=== PATIENT | male | born 1955 | race Caucasian/White ===

== ENCOUNTER 2024-11-08 17:57 | Emergency (ER) | payer MEDICARE, SELFPAY ==
[2024-11-08 17:58] VITALS: BP 135/81
[2024-11-08 18:23] LABS: % Basophils 0.4 % (0-2); % Eosinophils 2.2 % (0-6); % Immature Granulocytes 0.1 % (0-0.5); % Lymphocytes 19.2 % (20.5-51.1); % Neutrophils 71.1 % (42.2-75.2); Absolute Eosinophils 0.2 10^3/uL (0-0.7); Absolute Lymphocytes 1.6 10^3/uL (1.2-3.4); Absolute Monocytes 0.6 10^3/uL (0.1-0.6); Hematocrit 40.6 % (39.0-52.0); Mean Corp Hgb Conc. 34.5 g/dL (33.0-37.0); Mean Corpuscular Volume 89.8 fL (80.0-94.0); Mean Platelet Volume 8.6 fL (7.4-10.4); Nucleated Red Blood Cells % 0 % (-); Platelet Count 284 10^3/uL (130-400); Red Blood Cell Count 4.52 10^6/uL (4.70-6.10); Red Cell Dist. Width 12.8 % (11.5-14.5); White Blood Cell Count 8.4 10^3/uL (4.8-10.8)
[2024-11-08 18:37] LABS: ALT (SGPT) 15 U/L (0-50); AST (SGOT) 22 U/L (17-59); Albumin 4.7 g/dl (3.5-5.0); Alkaline Phosphatase 71 U/L (38-126); Blood Urea Nitrogen 39 mg/dl (9-20); Calcium 9.6 mg/dl (8.4-10.2); Carbon Dioxide 22 mmol/L (22-30); Chloride 112 mmol/L (98-107); Glucose 99 mg/dl (70-99); Potassium 4.2 mmol/L (3.5-5.1); Sodium 144 mmol/L (135-145); Total Bilirubin 1.1 mg/dl (0.2-1.3); Total Protein 7.3 g/dl (6.3-8.2)
--- NOTE | 2024-11-08 19:18 | ED.GENMED ---
History of Present Illness
General
Chief Complaint: Abdominal Symptoms
Source: patient
Exam Limitations: none
Time Seen by Provider: 11/08/24 19:13
Nursing documentation reviewed up to this point in time: agreed with
History of Present Illness
History of Present Illness:
69-year-old male presents emergency room due to diarrhea and agitation. He has a history of dementia, has been somewhat more agitated with his diarrhea. No fevers.
Past History
Past History
ED Past Medical History: Other (Dementia)
ED Past Surgical History: Other (Hernia repair)
Social History
Tobacco: Non-smoker
Alcohol: None
Drug: None
Personal:
Living: with family
Employment: Retired
Review of Systems
Review of Systems
Allergies reviewed?: Yes
All Other Systems: Not applicable
Constitutional: Reports no symptoms; Denies fever
EENT: Reports no symptoms
Respiratory: Reports no symptoms
Cardiac: Reports no symptoms
ABD/GI: Reports diarrhea
: Reports no symptoms
Musculoskeletal: Reports no symptoms
Skin: Reports no symptoms
Neurological: Reports no symptoms
Endocrine: Reports no symptoms
Hematologic/Lymphatic: Reports no symptoms
Psychiatric: Reports no symptoms
Phy Exam
Physical Exam
Physical Exam:
Physical Exam
General: no apparent distress, not acutely ill
Neck: supple. no meningeal signs. normal posterior pharynx
Heart: s1/s2 regular rate and rhythm, no murmur. equal radial
pulses.
HEENT: Pupils equal round reactive to light, EOMI
Lungs: no acute respiratory distress. clear bilaterally
Abdomen: normal bowel sounds. not tender. no CVAT
Neuro: alert and oriented to person. no focal neurological deficits cranial nerves II through XII intact
Skin: no rash
Psychiatric: well kept. interactive and cooperative
Extremities: no edema. no calf tenderness. negative homans. good distal pulses
Course
Orders/Labs/Results
Orders:
Orders
11/08/24 18:06
Complete Blood Count/With Diff Urgent
Comprehensive Metabolic Panel Urgent
11/08/24 19:33
Loperamide [Imodium] 4 mg PO NOW STA
Abnormal Lab Results
11/08/24
18:06
RBC 4.52 L 10^6/uL
(4.70-6.10)
Lymphocytes % 19.2 L %
(20.5-51.1)
Chloride 112 H mmol/L
(98-107)
BUN 39 H mg/dl
(9-20)
11/08/24 18:06
11/08/24 18:06
Vital Signs
Initial and Last Documented VS:
Initial Vital Signs
Temp Pulse Resp BP Pulse Ox
97.9 F 69 18 135/81 97
11/08/24 17:58 11/08/24 17:58 11/08/24 17:58 11/08/24 17:58 11/08/24 17:58
Last Documented Vital Signs
Temp Pulse Resp BP Pulse Ox
97.9 F 69 18 135/81 97
11/08/24 17:58 11/08/24 17:58 11/08/24 17:58 11/08/24 17:58 11/08/24 17:58
MDM/Problems Addressed
Differential Diagnosis Includes:
Hypovolemia, electrolyte abnormality, colitis
MDM/Problems Addressed:
69-year-old male with diarrhea, abdomen exam benign. Nonbloody brown stool on rectal exam.
Chronic conditions affecting care: Other (Dementia)
*Pulse Oximetry
Patient hypoxic: no
*Critical Care Note
Total Time (30-74mins, 75-104mins- exclusive of procedures): Not Applicable
Data Reviewed
Further Testing Considered But Not Given:
CT abdomen pelvis not indicated
Patient Management
Social determinants of health affecting care: Living situation and Strong social support
Escalation/DeEscalation of care consider admission/obs:
Admit not indicated
ED Attending Note
-
Portions of this chart may have been created with voice recognition software.� Occasional wrong word or��sound alike� substitutions may have occurred due to the inherent limitations of voice recognition software.
Discharge Plan
Departure
Patient Disposition: Home (Routine Discharge)
Date of Disposition: 11/08/24
Time of Disposition: 19:40
Patient with high blood pressure during this ER visit?: Yes
Condition: Good
Discharge Problem:
Diarrhea
Instructions: Diarrhea in teens and adults, BLOOD PRESSURE
Activity Restrictions/Additional Instructions:
Follow-up with primary care. Return for any concerns.
Interventions
Interventions:
*General Assessment Last Done: 11/08/24 18:01
*ED- Fall Risk Assessment Last Done: 11/08/24 18:01
Discharge Date and Time
Print Language: ROMANSH
[2024-11-08] MEDS: IMODIUM 4 MG PO (19:47)
== END 2024-11-08 19:50 | disposition home or self-care (01) ==
LOC: EMR 17:57
PROVIDERS: Emergency Medicine; EMERGENCY PHYSICIAN Emergency Medicine; FAMILY PHYSICIAN Internal Medicine
DX: R19.7 Diarrhea, unspecified (principal); F03.911 Unspecified dementia, unspecified severity, with agitation
CPT/HCPCS: 99283; 80053; 85025

== ENCOUNTER 2024-11-09 10:56 | Observation (INO) | payer MEDICARE, SELFPAY ==
[2024-11-09 06:37] VITALS: BP 155/81
--- NOTE | 2024-11-09 07:07 | ED.GENMED ---
History of Present Illness
<Yoni Pham PA-C - Last Filed: 11/09/24 10:40>
General
Chief Complaint: Change in Mental Status
Time Seen by Provider: 11/09/24 06:55
History of Present Illness
History of Present Illness:
Patient is a 69-year-old male with past medical history of frontotemporal dementia currently follows with neurology at [facility], diagnosed originally in 2011, here today for evaluation via EMS for a change in mental status and
diarrhea that has been occurring over the past 1 day. states the patient has had worsening of his dementia over the 1 month but yesterday the patient developed diarrhea and has since had an acute change in his mental status. He has had
greater than 10 episodes of slightly watery/semiformed diarrhea. No black or blood noted. No fevers. No other acute complaints. The patient has been more combative and has been physical with his . The patient was briefly evaluated in the
emergency department yesterday but ultimately left prior to being formally evaluated as the wait was too long. contacted EMS this morning as the patient has been having worsening symptoms and increased combativeness. I was able to speak with
the via the telephone. Her name is Jennie. She was able to provide the above history. She also denies recent antibiotic use for the patient. No recent travel outside of the country. No recent changes in diet or eating anything out of the
ordinary. No sick contacts. does state that they have been looking at nursing homes more recently over the past 1 month as the patient has been having worsening of his baseline dementia and she does not feel that she is able to appropriately
care for him.
Past History
<Yoni Pham PA-C - Last Filed: 11/09/24 10:40>
Past History
ED Past Medical History: Other (Dementia)
ED Past Surgical History: Other (Hernia repair)
Social History
Tobacco: Non-smoker
Alcohol: None
Drug: None
Personal:
Living: with family
Employment: Retired
Review of Systems
<Yoni Pham PA-C - Last Filed: 11/09/24 10:40>
Review of Systems
All Other Systems: ROS reviewed and negative except as documented in HPI and ROS
Phy Exam
<Yoni Pham PA-C - Last Filed: 11/09/24 10:40>
Physical Exam
Physical Exam:
GENERAL: Alert , in no apparent distress
EYE: pupils equal and reactive
NECK: Supple, no significant adenopathy.
ENT: o/p clr, mmm.
CARDIAC: Regular rate and rhythm .
LUNGS: Clear breath sounds bilaterally, no acute respiratory distress, no wheezes/rales/rhonchi
ABDOMEN: Soft, without focal tenderness, no r/g, no cvat
NEUROLOGICAL: Alert and oriented to self, place, and year, but not month, no focal neuro deficits
SKIN: Warm and dry, skin intact.
MUSCULOSKELETAL: No edema, well perfused.
PSYCH: Normal and appropriate interaction.
Course
<Yoni Pham PA-C - Last Filed: 11/09/24 10:40>
Orders/Labs/Results
Orders:
Orders
11/09/24 06:40
Straight cath- Treatment ONCE
11/09/24 06:50
Urinalysis Reflex To Culture Urgent
11/09/24 07:14
Ova & Parasites Giardia/Crypto AG [Giardia/Cryptosporidium Ag] Urgent
DENICE Source: Feces/Stool
Specimen Description:
STOOL [C difficile Antigen & Toxins] Urgent
DENICE Source: Feces/Stool
Specimen Description:
Stool Culture Urgent
DENICE Source: Feces/Stool
Specimen Description:
11/09/24 07:19
Haloperidol Lactate [Haldol] 3 mg IM NOW STA
11/09/24 07:34
Complete Blood Count/With Diff Urgent
Comprehensive Metabolic Panel Urgent
Magnesium Urgent
Phosphorus Urgent
11/09/24 08:10
0.9% Sodium Chloride 1000 ml [Nss] 1,000 ml IV BOLUS
11/09/24 10:30
Admit/Transfer Patient As Directed
Co-Sign Provider:
Level of Care: Observation services
Assign to:: Medical/Surgical
Physician / Group: Dr. Petar Baca/Hospitalists
Diagnosis: Diarrhea, worsening of dementia/agitation
11/09/24 10:31
Code Status As Directed
Resuscitation Status: Full Code
11/09/24 10:34
Electrocardiogram (*1) Routine
Reason for Study: QTc Monitoring
Abnormal Lab Results
11/09/24
07:34
RBC 4.53 L 10^6/uL
(4.70-6.10)
Lymphocytes % 20.3 L %
(20.5-51.1)
Chloride 113 H mmol/L
(98-107)
BUN 38 H mg/dl
(9-20)
Glucose 100 H mg/dl
(70-99)
11/09/24 07:34
11/09/24 07:34
Vital Signs
Initial and Last Documented VS:
Initial Vital Signs
Temp Pulse BP Pulse Ox
97.7 F 65 155/81 97
11/09/24 06:37 11/09/24 06:37 11/09/24 06:37 11/09/24 06:37
Last Documented Vital Signs
Temp Pulse BP Pulse Ox
97.7 F 65 155/81 97
11/09/24 06:37 11/09/24 06:37 11/09/24 06:37 11/09/24 06:37
<Ghassan Gaona, DO - Last Filed: 11/09/24 07:40>
Orders/Labs/Results
Orders:
Orders
11/09/24 06:40
Straight cath- Treatment ONCE
11/09/24 06:50
Urinalysis Reflex To Culture Urgent
11/09/24 07:14
Ova & Parasites Giardia/Crypto AG [Giardia/Cryptosporidium Ag] Urgent
DENICE Source: Feces/Stool
Specimen Description:
STOOL [C difficile Antigen & Toxins] Urgent
DENICE Source: Feces/Stool
Specimen Description:
Stool Culture Urgent
DENICE Source: Feces/Stool
Specimen Description:
11/09/24 07:19
Haloperidol Lactate [Haldol] 3 mg IM NOW STA
11/09/24 07:34
Complete Blood Count/With Diff Urgent
Comprehensive Metabolic Panel Urgent
Magnesium Urgent
Phosphorus Urgent
11/09/24 08:10
0.9% Sodium Chloride 1000 ml [Nss] 1,000 ml IV BOLUS
11/09/24 10:30
Admit/Transfer Patient As Directed
Co-Sign Provider:
Level of Care: Observation services
Assign to:: Medical/Surgical
Physician / Group: Dr. Petar Baca/Hospitalists
Diagnosis: Diarrhea, worsening of dementia/agitation
11/09/24 10:31
Code Status As Directed
Resuscitation Status: Full Code
11/09/24 10:34
Electrocardiogram (*1) Routine
Reason for Study: QTc Monitoring
Abnormal Lab Results
11/09/24
07:34
RBC 4.53 L 10^6/uL
(4.70-6.10)
Lymphocytes % 20.3 L %
(20.5-51.1)
Chloride 113 H mmol/L
(98-107)
BUN 38 H mg/dl
(9-20)
Glucose 100 H mg/dl
(70-99)
11/09/24 07:34
11/09/24 07:34
Vital Signs
Initial and Last Documented VS:
Initial Vital Signs
Temp Pulse BP Pulse Ox
97.7 F 65 155/81 97
11/09/24 06:37 11/09/24 06:37 11/09/24 06:37 11/09/24 06:37
Last Documented Vital Signs
Temp Pulse BP Pulse Ox
97.7 F 65 155/81 97
11/09/24 06:37 11/09/24 06:37 11/09/24 06:37 11/09/24 06:37
<Yoni Pham PA-C - Last Filed: 11/09/24 10:40>
MDM/Problems Addressed
Differential Diagnosis Includes:
Patient is a 69-year-old male with past medical history of frontotemporal dementia currently follows with neurology at [facility], diagnosed originally in 2011, here today for evaluation via EMS for a change in mental status and
diarrhea. Overall, patient appears very well. Vital signs remarkable for a mildly elevated blood pressure. Physical examination described above. On my evaluation the patient denies acute complaints. He does appear intermittently
agitated/combative and is requesting to go home. He is easily redirectable. We will begin with a workup to assess for dehydration and to assess diarrhea. He will ultimately require admission to the hospital as the patient is not able to be cared
for at home. We will involve social work and care management.
11/09/2024 0828: Screening labs reveal a mildly elevated chloride to 113 and elevated BUN to 38 with a normal creatinine of 1.1. Stool studies pending. We will admit the patient to medicine for further evaluation as well as for management and
placement.
<Yoni Pham PA-C - Last Filed: 11/09/24 10:40>
*Critical Care Note
Total Time (30-74mins, 75-104mins- exclusive of procedures): Not Applicable
ED Attending Note
<Yoni Pham PA-C - Last Filed: 11/09/24 10:40>
-
Portions of this chart may have been created with voice recognition software.� Occasional wrong word or��sound alike� substitutions may have occurred due to the inherent limitations of voice recognition software.
<Ghassan Gaona, DO - Last Filed: 11/09/24 07:40>
ED Attending Note
Patient seen and examined by attending physician: Yes
I performed the substantive portion of visit, reviewed & personally made and approve the management plan that is documented in note by myself or ELINA.: Yes
ED Attending Note:
Seen with PA examined independently elderly male with dementia increasing agitation diarrheal illness seen here yesterday left after becoming more agitated medics called and requested sedation did although we did not give it to him, states he did
smell like urine question if he has a UTI sounds like cannot handle him at home, will check for medical causes given some sedation here antipsychotics, disposition could be a challenge
Discharge Plan
Departure
Patient Disposition: Admit
Date of Disposition: 11/09/24
Time of Disposition: 08:53
Admit to: Med/Surg
Admit to doctor: Andrew Shea
Presentation/result/management discussed w/ accepting MD/DO: Hospitalist
Patient with high blood pressure during this ER visit?: Yes
Consults for patient: Case Management
Condition: Fair
Covid-19: Not Applicable
Discharge Problem:
Dementia, Altered mental status, Diarrhea
Referrals:
UNKNOWN - PT NOT,INTERVIEWE [Family Provider]
Interventions
Interventions:
*Risk Screen - Suicide Last Done: 11/09/24 06:37
*General Assessment Last Done: 11/09/24 06:37
*Neglect/Abuse Screening Last Done: 11/09/24 06:37
*ED- Fall Risk Assessment Last Done: 11/09/24 06:37
*ED COVID-19 Vaccine History Last Done: 11/09/24 06:37
ED- Neurological Assessment Last Done: 11/09/24 09:47
Discharge Date and Time
Print Language: MAURITIAN
[2024-11-09] MEDS: HALDOL 3 MG IM ×2 (07:29→19:33)
[2024-11-09 07:44] LABS: % Basophils 0.6 % (0-2); % Eosinophils 5.2 % (0-6); % Immature Granulocytes 0.1 % (0-0.5); % Lymphocytes 20.3 % (20.5-51.1); % Neutrophils 64.8 % (42.2-75.2); Absolute Eosinophils 0.4 10^3/uL (0-0.7); Absolute Lymphocytes 1.5 10^3/uL (1.2-3.4); Absolute Monocytes 0.6 10^3/uL (0.1-0.6); Absolute Neutrophils 4.6 10^3/uL (1.4-6.5); Hematocrit 41.3 % (39.0-52.0); Hemoglobin 13.8 g/dL (13.0-18.0); Mean Corp Hgb Conc. 33.4 g/dL (33.0-37.0); Mean Corpuscular Hgb 30.5 pg (27.0-31.0); Mean Corpuscular Volume 91.2 fL (80.0-94.0); Mean Platelet Volume 8.6 fL (7.4-10.4); Nucleated Red Blood Cells % 0 % (-); Platelet Count 267 10^3/uL (130-400); Red Blood Cell Count 4.53 10^6/uL (4.70-6.10); White Blood Cell Count 7.1 10^3/uL (4.8-10.8)
[2024-11-09 08:08] LABS: ALT (SGPT) 15 U/L (0-50); AST (SGOT) 25 U/L (17-59); Albumin 4.2 g/dl (3.5-5.0); Alkaline Phosphatase 64 U/L (38-126); Blood Urea Nitrogen 38 mg/dl (9-20); Calcium 9.2 mg/dl (8.4-10.2); Carbon Dioxide 25 mmol/L (22-30); Chloride 113 mmol/L (98-107); Estimated Creatinine Clearance 60 ml/min; Glucose 100 mg/dl (70-99); Magnesium 2.2 mg/dl (1.6-2.3); Phosphorus 3.3 mg/dl (2.5-4.5); Sodium 145 mmol/L (135-145); eGFR > 60.00
--- NOTE | 2024-11-09 09:50 | CM ---
Addendum entered by Sushma Fernandez RN 11/09/24 15:03:
The patient is admitted under observational status. The DUGGAN letter was discussed with the spouse via telephone. There were no questions with regards to the letter.
Original Note:
Reviewed the chart notes and spoke with the patient's spouse via telephone. Patient is confused and unable to provide meaningful information. The patient resides with his spouse in a two story home with two steps to enter. The patient refused to
use any DME. The patient has had VN/PT/OT through [facility], but no SNF. The patient's current pharmacy is [facility].
Per spouse, patient was to be evaluated on Monday for possible placement at the [facility]. Per spouse, plan was for placement in January at the [facility] once it is completed. Per spouse, she is unable to handle the patient
at home any longer. Spouse will reach out to the [facility] to see if they would be able to evaluate the patient while in hospital. CM continues to be available to patient/family and is monitoring medical plan for needs at discharge.
Plan: Discharge to [facility] once bed secured.
--- NOTE | 2024-11-09 10:36 | HPS.HSE ---
Family Physician
-
Family Physician: INTERVIEWE UNKNOWN - PT NOT
Chief Complaint
-
Diarrhea, agitation
History of Present Illness
69 y/o male with past medical history of frontotemporal dementia currently follows with neurology at [facility], diagnosed originally in 2011, here today for evaluation via EMS for a change in mental status and diarrhea that has been
occurring over the past 1-2 days. History was obtained, via phone, from patient's (Jennie), since patient was confused and could not provide a reliable history. Jennie mentioned that on November 08, 2024 around 4 am patient had slightly watery
brownish semiformed diarrhea. Patient has actually had at least 10 episodes of this. Patient has not expressed any other symptoms as per Jennie. Over the past month, his agitation has been worsening, but after patient's diarrhea started, it was even
worse. Patient's said that patient is otherwise very healthy and does not take any medications at home.
Medical History
Past Medical History
Past Medical History: Reports Other (As per HPI above)
Past Surgical History: Reports Other (Hernia Surgery)
Social History
Tobacco: Non-smoker
Alcohol: None
Drug: None
Family History
Family History: Not pertinent
Allergies / Home Medications
Allergies reflects when Allergies were last updated in [facility].
Home Medications with original date entered in [facility]
Allergy/Medication List:
Allergies
Allergy/AdvReac Type Severity Reaction Status Date / Time
No Known Allergies Allergy Verified 04/06/21 10:46
Review of Systems
-
Unable to obtain full review of systems at this time due to: Dementia
Physical Exam
Vital Signs
Vital Signs
Temp Pulse BP Pulse Ox
97.7 F 65 155/81 97
11/09/24 06:37 11/09/24 06:37 11/09/24 06:37 11/09/24 06:37
Physical Exam
General: No Apparent Distress
HEENT: NormoCephalic and Moist mucous membranes
Respiratory: Clear
Cardiac: S1/S2 and Regular Rhythm
GI: Soft, Non Tender and Normal Bowel Sounds
Genito-urinary: Other (No suprapubic tenderness. No CVA tenderness on either side.)
Musculoskeletal: No Cyanosis
Skin: Warm and Dry
Neuro: Awake and Alert
Psych: Confused, Agitated and Apparent Dementia
Laboratory Results
-
11/09/24 07:34
11/09/24 07:34
Laboratory Results
Total Bilirubin 1.0 mg/dl (0.2-1.3) 11/09/24 07:34
AST 25 U/L (17-59) 11/09/24 07:34
ALT 15 U/L (0-50) 11/09/24 07:34
Alkaline Phosphatase 64 U/L (38-126) 11/09/24 07:34
Impression/Plan
-
Assessment/Plan
Diarrhea -- at least 10 episodes starting in nurse head of November 08, 2024
-No obvious etiology for the loose stools/diarrhea, could be viral gastroenteritis. No blood or abdominal distress noted in history of exam. No fever.
-No abdominal tenderness during physical exam
-IV fluids
-Follow stool studies
-If persists, will consult GI
Frontotemporal Dementia
Worsening agitation -- was getting worse over the past ~1 month, now even more worse since diarrhea started
-Consider 20 mg daily Citalopram if QTc is okay
-Can also consider for agitation: Seroquel 25 mg prn and scheduled HS, Olanzapine, or Ativan
History of Hernia Surgery
DVT Prophylaxis: Lovenox
Code Status: Full Code (at the time of admission, patient's Jennie confirmed that patient is a Full Code)
[2024-11-09 12:20] VITALS: BP 113/67
[2024-11-09 12:24] VITALS: BMI 21.5
--- NOTE | 2024-11-09 12:30 | PTCARENOTE ---
Patient arrived to unit. VSS. patient oriented to self and knows the year. disoriented to place and month. patient tolerated ambulating from stretcher to bed with staff assistance. patient has unsteady gait. bed alarm in place. 1:1 initiated. call
marshall in reach. safety maintained.
[2024-11-09] MEDS: LR 1000 IV (12:55)
[2024-11-09 15:00] VITALS: BP 141/35
[2024-11-09] MEDS: LOVENOX 40 MG SC (17:23)
[2024-11-09 21:52] LABS: Urine Albumin Negative (Neg - Trace); Urine Bilirubin Negative (Negative); Urine Character Clear (Clear); Urine Color Yellow; Urine Glucose Negative (Negative); Urine Ketone 1+ (Negative); Urine Leukocyte Negative (Negative); Urine Nitrite Negative (Negative); Urine Occult Blood Negative (Negative); Urine Urobilinogen Negative (Neg - 1+)
[2024-11-09 23:36] VITALS: BP 139/86
[2024-11-10] MEDS: LR 1000 IV (04:25)
[2024-11-10 07:00] VITALS: BP 139/70
[2024-11-10 07:07] LABS: Hematocrit 40.6 % (39.0-52.0); Hemoglobin 13.8 g/dL (13.0-18.0); Mean Corpuscular Hgb 30.9 pg (27.0-31.0); Mean Corpuscular Volume 90.8 fL (80.0-94.0); Mean Platelet Volume 8.8 fL (7.4-10.4); Platelet Count 265 10^3/uL (130-400); Red Blood Cell Count 4.47 10^6/uL (4.70-6.10); Red Cell Dist. Width 12.6 % (11.5-14.5); White Blood Cell Count 6.3 10^3/uL (4.8-10.8)
[2024-11-10 07:23] LABS: Blood Urea Nitrogen 22 mg/dl (9-20); Calcium 9.1 mg/dl (8.4-10.2); Carbon Dioxide 24 mmol/L (22-30); Chloride 108 mmol/L (98-107); Estimated Creatinine Clearance 66 ml/min; Glucose 98 mg/dl (70-99); Magnesium 2.2 mg/dl (1.6-2.3); Potassium 4.1 mmol/L (3.5-5.1); Sodium 139 mmol/L (135-145); eGFR > 60.00
--- NOTE | 2024-11-10 07:45 | VATNOTE ---
Called by PCN to restart pt's IV as pt pulled it out this AM. Reviewed chart with PCN--ordered 75 mL/hour LR IV, however, pt is eating and drinking, not on telemetry, and with no other IV medications. PCN to discuss need for fluids and PIV with
provider. Will continue to follow, may not need PIV restart; will restart if deemed necessary by MD.
--- NOTE | 2024-11-10 08:01 | W.PN.HOSP.TC ---
Today's Communication/Plan
-
Placement Pending
Assessment / Plan
Assessment / Plan
Physical Exam
General: No Apparent Distress
HEENT: NormoCephalic and Moist mucous membranes
Respiratory: Clear
Cardiac: S1/S2 and Regular Rhythm
GI: Soft, Non Tender and Normal Bowel Sounds
Genito-urinary: Other (No suprapubic tenderness. No CVA tenderness on either side.)
Musculoskeletal: No Cyanosis
Skin: Warm and Dry
Neuro: Awake and Alert
Psych: Confused, Agitated and Apparent Dementia
Assessment/Plan
Diarrhea -- at least 10 episodes starting in food demonstrator of November 08, 2024
-No obvious etiology for the loose stools/diarrhea, could be viral gastroenteritis. No blood or abdominal distress noted in history of exam. No fever.
-No abdominal tenderness during physical exam
-DIARRHEA RESOLVED OF NOVEMBER 10, 2024
-IV fluids were given
Frontotemporal Dementia
Worsening agitation -- was getting worse over the past ~1 month, now even more worse since diarrhea started just prior to this hospitalization
-Consider 20 mg daily Citalopram if QTc is okay
-Can also consider for agitation: Seroquel 25 mg prn and scheduled HS, Olanzapine, or Ativan
-So far this hospitalization, prn Zyprexa and Haldol have been given for agitation
-Monitor EKG QTc -- repeat EKG ordered for the morning
History of Hernia Surgery
DVT Prophylaxis: Lovenox
Code Status: Full Code (at the time of admission, patient's Jennie confirmed that patient is a Full Code)
Anticipated Discharge: 24 - 48 hours
Subjective/Interval History
-
Date of Service: November 10, 2024
Patient was seen and examined. Per patient's nurse, overnight he was agitated, but he has not had any diarrhea.
Objective Data
-
Labs:
Laboratory Results
11/10/24
06:36
WBC 6.3
Hgb 13.8
Hct 40.6
Plt Count 265
Sodium 139
Potassium 4.1
Chloride 108 H
Carbon Dioxide 24
BUN 22 H
Creatinine 1.0
Glucose 98
Calcium 9.1
Vital Signs:
Vital Signs
Temp Pulse Resp BP Pulse Ox
98.1 F 79 18 139/86 96
11/09/24 23:36 11/09/24 23:36 11/09/24 23:36 11/09/24 23:36 11/09/24 23:36
I&O
11/09/24 11/10/24 11/11/24
06:59 06:59 06:59
Intake Total 720 / 720
Balance 720 / 720
[2024-11-10] MEDS: STERILE WATER FOR INJECTION 2.1 ML IM (11:31)
[2024-11-10] MEDS: ZYPREXA 5 MG IM (11:32)
[2024-11-10] MEDS: LR IV (13:55)
[2024-11-10 15:00] VITALS: BP 149/77
[2024-11-10] MEDS: LOVENOX 40 MG SC (17:33)
[2024-11-10 23:42] VITALS: BP 149/75
[2024-11-11 07:42] VITALS: BP 154/81
[2024-11-11 08:23] LABS: Hematocrit 41.7 % (39.0-52.0); Hemoglobin 14.1 g/dL (13.0-18.0); Mean Corp Hgb Conc. 33.8 g/dL (33.0-37.0); Mean Corpuscular Hgb 30.2 pg (27.0-31.0); Mean Corpuscular Volume 89.3 fL (80.0-94.0); Platelet Count 278 10^3/uL (130-400); Red Blood Cell Count 4.67 10^6/uL (4.70-6.10); Red Cell Dist. Width 12.8 % (11.5-14.5); White Blood Cell Count 7.9 10^3/uL (4.8-10.8)
[2024-11-11 08:55] LABS: Blood Urea Nitrogen 20 mg/dl (9-20); Calcium 9.2 mg/dl (8.4-10.2); Carbon Dioxide 26 mmol/L (22-30); Chloride 107 mmol/L (98-107); Estimated Creatinine Clearance 66 ml/min; Glucose 99 mg/dl (70-99); Potassium 3.8 mmol/L (3.5-5.1); Sodium 140 mmol/L (135-145); eGFR > 60.00
--- NOTE | 2024-11-11 11:08 | CM ---
police manager reviewed patient's chart and reached out to patient's physician for PT/OT orders, per patient's spouse she is looking at two facilities, [facility], and [facility] unit in [place]. Referrals sent to both facilities, and
per Kallie at the [facility] [place] they will be out to see patient today at 1pm.
Plan; Personal Care/ Assisted Living placement for patient's with memory care/dementia.
--- NOTE | 2024-11-11 11:10 | W.PN.HOSP.TC ---
Today's Communication/Plan
-
PT/OT
Discharge planning
Assessment / Plan
Assessment / Plan
Gen-awake, alert, confused, NAD
HEENT-NC, AT, anicteric, clear oral mm
Neck-supple
CV-reg, no M, +S1/S2
Lungs-clear B/L
Abd-soft, NT, ND
Ext-no edema
Musculoskeletal-no cyanosis, clubbing
Skin-warm and dry
Neuro-grossly non-focal
Psych-calm, cooperative
Acute diarrhea --resolved.
-No obvious etiology for the loose stools/diarrhea, could be viral gastroenteritis. No blood or abdominal distress noted in history of exam. No fever.
Frontotemporal Dementia
Worsening agitation -- was getting worse over the past ~1 month, now even more worse since diarrhea started just prior to this hospitalization
-Consider 20 mg daily Citalopram if QTc is okay
-Can also consider for agitation: Seroquel 25 mg prn and scheduled HS, Olanzapine, or Ativan
-So far this hospitalization, prn Zyprexa and Haldol have been given for agitation
- QTc 416 ms today.
History of Hernia Surgery
Full code
Dispo -medically stable for discharge to assisted living. PT/OT consulted. Case management aware.
Anticipated Discharge: Today
Subjective/Interval History
-
Date of Service: November 11, 2024
Patient seen and examined. No complaints. Confused.
Objective Data
-
Labs:
Laboratory Results
11/11/24
07:55
WBC 7.9
Hgb 14.1
Hct 41.7
Plt Count 278
Sodium 140
Potassium 3.8
Chloride 107
Carbon Dioxide 26
BUN 20
Creatinine 1.0
Glucose 99
Calcium 9.2
Vital Signs:
Vital Signs
Temp Pulse Resp BP Pulse Ox
98.2 F 65 18 154/81 97
11/11/24 07:42 11/11/24 07:42 11/11/24 07:42 11/11/24 07:42 11/11/24 07:42
I&O
11/10/24 11/11/24 11/12/24
06:59 06:59 06:59
Intake Total 720 / 720 240 / 240
Balance 720 / 720 240 / 240
Review of Systems
-
Unable to obtain full review of systems at this time due to: Dementia
History Source: Patient
All other systems: Reviewed and negative
[2024-11-11 15:07] VITALS: BP 154/86; PULSE 65
[2024-11-11 16:03] VITALS: BP 149/81
[2024-11-11] MEDS: LOVENOX 40 MG SC (18:17)
[2024-11-11 23:40] VITALS: BP 146/82
[2024-11-12 08:10] VITALS: BP 157/81
--- NOTE | 2024-11-12 10:17 | CM ---
Addendum entered by Lorelei Aleman 11/12/24 15:51:
Patient accepted at [facility] for transfer in the am. Patient family in agreement and DME sent to Felicita from admissions at [facility]. CM will continue to follow for discharge planning needs.
Plan; transfer via ambulance to personal care memory care
Addendum entered by Lorelei Aleman 11/12/24 12:31:
Patient stated that children are going to see [facility] and she is leaning toward them at this time. asked CM to wait for children assessment prior to contacting [facility].
Addendum entered by Lorelei Aleman 11/12/24 12:06:
CM spoke with , she states they are having difficulty deciding between the two facilities; [facility] and [facility] in [place]. Patient requested to talk to Wendi Pearson about the decision between the 2 options. Await call back from
regarding decision.
Original Note:
Patient accepted by [facility] and per liaison willing to accept today. CM called to patient and left VM to clarify patient choice. CM will continue to follow for discharge planning needs.
Plan; personal care
--- NOTE | 2024-11-12 11:12 | W.PN.HOSP.TC ---
Today's Communication/Plan
-
Discharge planning
Assessment / Plan
Assessment / Plan
Gen-awake, alert, confused, NAD
HEENT-NC, AT, anicteric, clear oral mm
Neck-supple
CV-reg, no M, +S1/S2
Lungs-clear B/L
Abd-soft, NT, ND
Ext-no edema
Musculoskeletal-no cyanosis, clubbing
Skin-warm and dry
Neuro-grossly non-focal
Psych-calm, cooperative
Acute diarrhea --resolved.
-No obvious etiology for the loose stools/diarrhea, could be viral gastroenteritis. No blood or abdominal distress noted in history of exam. No fever.
Frontotemporal Dementia
Worsening agitation -- was getting worse over the past ~1 month, now even more worse since diarrhea started just prior to this hospitalization
-Consider 20 mg daily Citalopram if QTc is okay
-Can also consider for agitation: Seroquel 25 mg prn and scheduled HS, Olanzapine, or Ativan
-So far this hospitalization, prn Zyprexa and Haldol have been given for agitation
- QTc 416 ms today.
History of Hernia Surgery
Full code
Dispo -medically stable for discharge to assisted living. PT/OT consulted. Case management aware.
Anticipated Discharge: Today
Subjective/Interval History
-
Date of Service: November 12, 2024
Patient seen and examined. Confused, no complaints.
Objective Data
-
Vital Signs:
Vital Signs
Temp Pulse Resp BP Pulse Ox
97.8 F 65 16 157/81 97
11/12/24 08:10 11/12/24 08:10 11/12/24 08:10 11/12/24 08:10 11/12/24 08:10
I&O
11/11/24 11/12/24 11/13/24
06:59 06:59 06:59
Intake Total 240 / 240 480 / 480
Balance 240 / 240 480 / 480
Review of Systems
-
History Source: Patient
All other systems: Reviewed and negative
[2024-11-12 15:58] VITALS: BP 123/66
[2024-11-12] MEDS: LOVENOX 40 MG SC (17:45)
[2024-11-12 23:20] VITALS: BP 122/72
[2024-11-13 07:00] VITALS: BP 110/80
--- NOTE | 2024-11-13 09:18 | W.PN.HOSP.TC ---
Today's Communication/Plan
-
Discharge
Assessment / Plan
Assessment / Plan
Gen-awake, alert, confused, NAD
HEENT-NC, AT, anicteric, clear oral mm
Neck-supple
CV-reg, no M, +S1/S2
Lungs-clear B/L
Abd-soft, NT, ND
Ext-no edema
Musculoskeletal-no cyanosis, clubbing
Skin-warm and dry
Neuro-grossly non-focal
Psych-calm, cooperative
Acute diarrhea --resolved.
-No obvious etiology for the loose stools/diarrhea, could be viral gastroenteritis. No blood or abdominal distress noted in history of exam. No fever.
Frontotemporal Dementia
Worsening agitation -- was getting worse over the past ~1 month, now even more worse since diarrhea started just prior to this hospitalization
-Consider 20 mg daily Citalopram if QTc is okay
-Can also consider for agitation: Seroquel 25 mg prn and scheduled HS, Olanzapine, or Ativan
-So far this hospitalization, prn Zyprexa and Haldol have been given for agitation
- QTc 416 ms today.
History of Hernia Surgery
Full code
Dispo -medically stable for discharge to assisted living. PT/OT consulted. Case management aware.
31 minutes spent in discharge process.
Anticipated Discharge: Today
Subjective/Interval History
-
Date of Service: November 13, 2024
Patient seen and examined. Eating breakfast. No complaints.
Objective Data
-
Vital Signs:
Vital Signs
Temp Pulse Resp BP Pulse Ox
97.7 F 58 12 122/72 97
11/12/24 23:20 11/12/24 23:20 11/12/24 23:20 11/12/24 23:20 11/12/24 23:20
I&O
11/12/24 11/13/24 11/14/24
06:59 06:59 06:59
Intake Total 480 / 480 120 / 120 240 / 240
Balance 480 / 480 120 / 120 240 / 240
Review of Systems
-
History Source: Patient
All other systems: Reviewed and negative
--- NOTE | 2024-11-13 09:18 | W.DS.TRANS ---
DC Summary - Android Platform Developer
-
Discharge Instructions:
Discharge Diagnosis/Procedures Dementia
Diet Regular
Activity With assistance,As tolerated
Driving Restrictions No driving
Bathing Restrictions None
Instructions:
Stand-Alone Forms:
Changes to Home Medications: No
Discharge Medications:
DC Medications w/original date entered in [employer]
polyethylene glycol 3350 17 gram oral powder packet 17 g PO DAILYPRN PRN constipation #0 ea 11/13/24
sennosides 8.6 mg-docusate sodium 50 mg tablet 1 tab PO BIDPRN PRN constipation #0 tabs 11/13/24
Home Medication Changes
Pending Results: No
--- NOTE | 2024-11-13 10:59 | CM ---
GREGG reviewed chart, patient for discharge today to [facility] in [place]. CM spoke with Jenny at [facility], confirmed ability to accept patient. CM spoke with patients , Jennie, reports her children are currently moving patient belongings
into new facility. Patient scheduled for 3:00 p.m. ambulance transport. CM will continue to follow for all discharge planning needs.
Plan; [facility], 3:00 p.m. ambulance transport
Gurjit
Report: [phone], Jenny
[2024-11-13 14:30] VITALS: BP 146/67
== END 2024-11-13 15:28 | disposition home or self-care (01) ==
LOC: 4 WEST ACU 10:56
PROVIDERS: Physician Assistant; ADMITTING PHYSICIAN Hospitalist; ATTENDING PHYSICIAN Hospitalist; EMERGENCY PHYSICIAN Emergency Medicine
DX: R19.7 Diarrhea, unspecified (principal); G31.09 Other frontotemporal neurocognitive disorder; R41.82 Altered mental status, unspecified; F02.811 Dementia in other diseases classified elsewhere, unspecified severity, with agitation; I10 Essential (primary) hypertension; G31.9 Degenerative disease of nervous system, unspecified; R00.1 Bradycardia, unspecified; I45.10 Unspecified right bundle-branch block
CPT/HCPCS: 70450; 80048; 80053; 81003; 83735; 84100; 85025; 85027; 93005; 96372; 97163; 97167; 99284; G0378; J2358

== ENCOUNTER 2024-12-17 17:33 | Emergency (ER) | payer MEDICARE, SELFPAY ==
[2024-12-17 17:36] VITALS: BP 114/77
[2024-12-17 20:19] VITALS: BP 128/74
--- NOTE | 2024-12-17 20:51 | ED.GENMED ---
History of Present Illness
General
Chief Complaint: Fall
Source: patient and family
Exam Limitations: dementia
Time Seen by Provider: 12/17/24 19:48
History of Present Illness
History of Present Illness:
Note:
CHIEF COMPLAINT(S)
Confusion and scalp laceration.
HISTORY OF PRESENT ILLNESS
The patient is a 69-year-old male who was found with a 1.5 cm laceration on his left parietal scalp, which appeared to have no obvious cause or surrounding blood. The patient was initially reported to be fine earlier in the day at approximately 3:30
PM. However, he was later discovered with the wound. Prior his admission to this extended care facility, the patient had been living independently at home but had recently become disoriented, likely due to a viral infection. This led to his
admission to [facility]. In the facility, he seemed calmer, possibly due to the structured environment. The patient typically manages personal activities like walking to the bathroom on his own.
ADDITIONAL HISTORY OBTAINED FROM SOURCES OTHER THAN THE PATIENT
Per family member, the patient has been staying in a facility for about a month where he seems calmer than at home. Despite his calm demeanor at the facility, upon checking on him, the laceration was discovered without any apparent fall or clear
incident resulting in the injury.
PHYSICAL EXAM
General: The patient is awake, alert but confused. No acute distress observed.
Skin: Warm, dry. Laceration measuring 1.5 cm on the left parietal scalp. No other bruising or significant skin findings.
Head: Normocephalic; atraumatic apart from the laceration.
Neck: Supple, trachea midline, no pain reported upon examination.
Eye Ears, Nose, Mouth, and Throat: Oral mucosa moist. Vision check completed, no reported discomfort.
Cardiovascular: Normal peripheral perfusion, no edema.
Respiratory: Respirations are non-labored.
Gastrointestinal: Abdomen nondistended.
Back: Normal range of motion; no midline spinal tenderness noted.
Musculoskeletal: Normal range of motion, normal strength. Hips and knees examined without issues.
Neurological: Alert. Observed confusion, but no focal neurological deficits detected.
Psychiatric: Cooperative, appropriate mood & affect for observed cognitive state.
PLAN
1. Clean and properly assess the laceration on the scalp to reduce the risk of infection.
2. Review imaging studies to rule out cranial injuries or abnormalities that could explain the confusion or contribute to the injury.
3. Consider tetanus prophylaxis if the patient is not up to date with tetanus immunizations.
4. Monitor and assess the triggering factors for his disorientation and provide an appropriate treatment.
DIFFERENTIAL DIAGNOSIS
The Differential Diagnosis includes, in no particular order and is not limited to:
1. Traumatic brain injury
2. Delirium secondary to infection
3. Medication side effect
4. Alcohol or substance withdrawal
5. Electrolyte imbalance
6. Dementia
7. Stroke or transient ischemic attack
8. Syncope
9. Urinary tract infection
10. Hypoglycemia
CARE-UPDATE
12/17/24 - 20:[address] scan of the head was normal with no bleeding or cervical spine fractures. A small area on the scalp will be treated with Dermabond instead of kayla to avoid issues with hair. The scan confirmed no intracranial injury, possibly due to a
minor incident like hitting a corner or door hinge.
Disposition:
SUMMARY OF ENCOUNTER
The patient, a 69-year-old male, presented to the emergency department with confusion and a 1.5 cm laceration on the left parietal scalp. It was unclear how the injury occurred, whether from scraping on furniture or an unwitnessed fall. No
surrounding bruising was noted to suggest a fall from standing. Initial CT scans of the head and cervical spine were normal, with no evidence of cranial injury or cervical spine fractures. The patient was awake, alert, and at his baseline without
any focal motor deficits.
DISPOSITION
Discharge with family to return to the nursing facility.
ASSESSMENT
The patients confusion was evaluated with normal CT imaging findings. The scalp laceration was likely minor, possibly from a minor accident or scrape.
EMERGENCY TREATMENTS ADMINISTERED
The scalp wound was treated with Dermabond for closure.
PLAN
The patient can be safely discharged to his nursing facility with follow-up for monitoring of his scalp laceration and confusion.
INDEPENDENT REVIEW OF LABS AND INTERPRETATION OF TESTS
- My independent interpretation of the CT scan of the head shows no intracranial injury.
- My independent interpretation of the cervical spine CT shows no fractures.
PATIENT EDUCATION AND COUNSELING
The patient and family were informed about the importance of monitoring for any changes in mental status or worsening symptoms. They were advised on appropriate wound care for the scalp laceration and to follow up if any complications arise.
FOLLOW-UP INSTRUCTIONS
The patient should be monitored at the nursing facility, with any concerning changes in mental status reported for further evaluation.
MEDICAL DECISION MAKING
- Complexity of Data Reviewed: Chronic conditions affecting care include his recent disorientation and viral infection. Differential diagnoses considered include traumatic brain injury, delirium secondary to infection, medication side effect,
alcohol or substance withdrawal, electrolyte imbalance, dementia, stroke, syncope, urinary tract infection, and hypoglycemia.
- Data:
Category 1: My independent interpretation of the CT scan of the head and cervical spine indicates no significant findings to explain confusion or cause of the laceration.
Category 2: Input from an independent historian was obtained, indicating the patient had been staying at a facility where he was calmer compared to his home environment, with this setup possibly reducing disorientation episodes.
-Risk: Prescription medication management or necessary monitoring for toxicity was not applicable in this case. Diagnostic testing included CT scans of the head and cervical spine as indicative of risk consideration, confirming no acute
life-threatening injuries. Admission was considered, but the patients stable condition and normal imaging findings supported discharge.
DIAGNOSIS
1. Scalp laceration - ICD-10-CM S01.02XA
2. Altered mental status, unspecified - ICD-10-CM R41.82
Past History
Past History
ED Past Medical History: Other (Dementia)
ED Past Surgical History: Other (Hernia repair)
Social History
Tobacco: Non-smoker
Alcohol: None
Drug: None
Personal:
Living: with family
Employment: Retired
Phy Exam
Physical Exam
Physical Exam:
.
Course
Orders/Labs/Results
Orders:
Orders
12/17/24 17:49
CT Head W/o Iv Contrast Urgent
Comment:
Reason For Exam: headstrike/dementia
Cervical Spine wo Contrast CT [CT Cervical Spine W/o Iv Contr] Urgent
Comment:
Reason For Exam: headstrike/dementia
Vital Signs
Initial and Last Documented VS:
Initial Vital Signs
Temp Pulse Resp BP Pulse Ox
98.4 F 68 18 114/77 100
12/17/24 17:36 12/17/24 17:36 12/17/24 17:36 12/17/24 17:36 12/17/24 17:36
Last Documented Vital Signs
Temp Pulse Resp BP Pulse Ox
98.4 F 63 18 128/74 98
12/17/24 17:36 12/17/24 20:19 12/17/24 20:19 12/17/24 20:19 12/17/24 20:19
Procedures
Laceration Closure
Left Head:
Status of Wound: clean
Size of Wound in cm: 1.5
Description of Wound Edges: sharp
Preparation: cleaned with saline
Wound exploration: explored to base- no FB
Type of Closure: single layer closure and Dermabond-skin glue
*Pulse Oximetry
SaO2: 98
Oxygen Mode of Delivery: Room air
Patient hypoxic: no
*Critical Care Note
Total Time (30-74mins, 75-104mins- exclusive of procedures): Not Applicable
ED Attending Note
-
Portions of this chart may have been created with voice recognition software.� Occasional wrong word or��sound alike� substitutions may have occurred due to the inherent limitations of voice recognition software.
Discharge Plan
Departure
Patient Disposition: Home (Routine Discharge)
Date of Disposition: 12/17/24
Time of Disposition: 20:51
Patient with high blood pressure during this ER visit?: No
Discharge Problem:
Minor head injury
Instructions: Laceration Repair With Glue (DC), Head Injury in Adults (DC)
Prescriptions:
No Action
polyethylene glycol 3350 17 gram Powder In Packet
17 g PO DAILYPRN PRN (Reason: constipation) Qty: 0 0RF
sennosides-docusate sodium 8.6-50 mg Tablet
1 tab PO BIDPRN PRN (Reason: constipation) Qty: 0 0RF
Referrals:
UNKNOWN - PT DOES,NOT KNOW [Family Provider]
Activity Restrictions/Additional Instructions:
Return immediately for redness of the wound, changes in mentation or any other concerns.
Interventions
Interventions:
*Risk Screen - Suicide Last Done: 12/17/24 17:36
*Neglect/Abuse Screening Last Done: 12/17/24 17:36
ED-Musculoskeletal Assessment Last Done: 12/17/24 20:32
ED- Neurological Assessment Last Done: 12/17/24 20:32
ED-Skin Assessment Last Done: 12/17/24 20:32
Discharge Date and Time
Print Language: UKRAINIAN
== END 2024-12-17 21:04 | disposition home or self-care (01) ==
LOC: EMR 17:33
PROVIDERS: EMERGENCY PHYSICIAN Emergency Medicine; FAMILY PHYSICIAN Internal Medicine
DX: S01.01XA Laceration without foreign body of scalp, initial encounter (principal); X58.XXXA Exposure to other specified factors, initial encounter; F03.90 Unspecified dementia, unspecified severity, without behavioral disturbance, psychotic disturbance, mood disturbance, and anxiety
CPT/HCPCS: 12001; 99284; 70450; 72125